=== PATIENT | female | born 1965 | race Hispanic/Latino ===

== ENCOUNTER 2017-06-08 08:12 | Day surgery (SDC) | payer OTHER, BC ==
[2017-06-04 14:17] VITALS: BMI 34.7
[2017-06-08] MEDS ORDERED: Lidocaine 2% w Epi 1:100,000 Inj IJ ONE ×2 (10:05→11:54)
[2017-06-08] MEDS ORDERED: Propofol 10 mg/ml Inj (20 ML) ONE (11:08)
[2017-06-08] MEDS ORDERED: Midazolam 2 MG/2 ML VIAL ONE (11:08)
[2017-06-08] MEDS ORDERED: Lidocaine 4% (Laryng-O-Jet) Kit MM ONE (11:08)
[2017-06-08] MEDS ORDERED: Lactated Ringer's 1,000 ML IV ONE ×2 (11:15→16:05)
[2017-06-08] MEDS ORDERED: Rocuronium 10 mg/ml (5 ml) ONE (11:25)
[2017-06-08] MEDS ORDERED: ePHEDrine 50 mg/ml Inj ONE (11:34)
[2017-06-08] MEDS ORDERED: Dexamethasone 4 mg/1 ml ONE (12:18)
[2017-06-08] MEDS ORDERED: Bupivacaine HCl 0.5% PF (10 ml) Inj ONE (13:15)
[2017-06-08] MEDS ORDERED: Sodium Chloride 0.9% 500 ML IV ONE (13:30)
[2017-06-08] MEDS ORDERED: Liquid Adhesive TOP ONE (13:34)
--- NOTE | 2017-06-08 14:00 | PCM.SURG1 ---
Surgeon's Initial Post Op Note - Surgeon's Notes Surgeon: Yusra Mata MD Inspector Repairer [place]: Espinoza Alejandre PA-C; Tonya Silveira MD Type of Anesthesia: General Endo, Other (post op interscalene block ) Pre-Operative Diagnosis: Right shoulder partial RTC tear Operative Findings: see op report Post-Operative Diagnosis: same as pre-op dx Operation Performed: Right shoulder artrhoscopy, double row rotator cuff repair , subacromial decompression with acromioplasty and distal clavulectomy, mini open subpec biceps tenodesis Specimen/Specimens Removed: none Estimated Blood Loss: EBL {In ML}: 10 Date of Surgery/Procedure: 06/08/17 Time of Surgery/Procedure: 12:00
[2017-06-08] MEDS ORDERED: Oxycodone/Acetaminophen 5/325 mg Tab PO PRN (14:01)
--- NOTE | 2017-06-08 14:22 | PCM.ANESB1 ---
Interscalene Block - Brachial Plexus Date of Procedure: 06/08/17 Anesthesiologist: Bryn Pre-Procedure Diagnosis: Right shoulder rotator cuff tear Post-Procedure Diagnosis: Same Procedure Performed: Interscalene Block of Brachial Plexus Right - Procedure Interscalene Block of Brachial Plexus: This procedure was explained to the patient that it is for post-operative pain management. Consent was obtained after a thorough discussion with the patient regarding the benefits and possible complications of local anesthetic block of the Brachial Plexus at the Interscalene area. The patient was brought to the Operating Room and standard monitors were applied. Time out was held with the circulating nurse to confirm the correct surgery and appropriate block. After the completion of surgery and patient was extubated, the patient's head was gently rotated away from the ___right___operative shoulder and the anterior scalene groove was carefully palpated. The ultrasound transducer was then applied to the skin in the transverse plane and the brachial plexus was visualized lateral to the carotid artery and in between the anterior and middle scalene muscles. After identification,the anterior lateral portion of the neck was prepped with Betadine solution three times and Lidocaine 1% was injected subcutaneously for topical analgesia. At this point, a # 22 gauge Stimuplex 2 inches insulated needle was inserted into the interscalene groove and directed in a caudal and midline direction. The needle was inserted lateral to the ultrasound transducer in-plane towards the brachial plexus in a [id number] direction. Needle advancement was performed carefully under direct ultrasound visualization. Nerve stimulator was used and twitched of the affected extremity including the hand brachialis muscles, biceps and the deltoid was obtained at a current of __0.4___MA. After repeated negative aspiration,__30___cc of__.5%___,___bupivacaine were injected. Under ultrasound guidance the local anesthetics were observed surrounding the roots of the brachial plexus. The needle was removed intact and sterile dressing was applied. The patient had stable vital signs, was conscious and in no apparent distress. The patient tolerated the interscalene block of the bracheal plexus well with stable vital signs and was transferred to PACU.
[2017-06-08] MEDS ORDERED: HYDROmorphone 0.5 mg/0.5 ml ISec IVP PRN (14:23)
[2017-06-08 18:11] VITALS: BP 128/80; PULSE 66; RESP 18; TEMP 97; O2SAT 98
--- NOTE | 2017-06-08 20:20 | OP ---
PROCEDURE DATE: 06/08/2017 ATTENDING SURGEON: Yusra Mata MD. JANITOR CLEANER: Espinoza Alejandre PA-C. PREOPERATIVE DIAGNOSES: 1. Right shoulder partial rotator cuff tear. 2. Synovitis. 3. Impingement. POSTOPERATIVE DIAGNOSES: 1. Right shoulder extensive synovitis. 2. Biceps tendon tear. 3. Capsular adhesions. 4. Full-thickness supraspinatus tear. 5. Impingement. 6. Acromioclavicular joint arthritis. 7. Subacromial bursitis. PROCEDURES: 1. Right shoulder double row rotator cuff repair. 2. Subacromial decompression with acromioplasty. 3. Distal clavicle excision. 4. Anterior capsular lysis of adhesions. 5. Complete synovectomy. 6. Mini-open subpectoral biceps tenodesis. TYPE OF ANESTHESIA: General and interscalene block. ESTIMATED BLOOD LOSS: 10 mL. SPECIMENS: None. CLOSURE: Primary. FLUIDS: See anesthesia sheet. ANTIBIOTICS: See anesthesia sheet. COMPLICATIONS: None. INDICATIONS: After failing a course of nonoperative therapy, the patient elected to undergo the above procedures. In the office the risks and possible complications of the shoulder arthroscopy were discussed in detail with the patient. These risks include, but are not limited to, continued pain, lack of motion, infection, vascular injury, and nerve injury including axillary nerve dysfunction, reflex sympathetic dystrophy, compartment syndrome, limb loss, and . The patient expressed an understanding of the risks and possible benefits of the procedure, and was also made aware of the alternatives to surgery. An informed consent was obtained, and was checked immediately preop. The patient's shoulder injuries requiring surgery are the result of an accident/incident that occurred at work. DESCRIPTION OF PROCEDURE: The patient was correctly identified in the holding area and the right shoulder was marked with the surgeon's initials. The patient was transported to the operating room and placed in the supine position and general anesthesia was obtained and regional interscalene block was used. A preoperative orthopedic examination revealed a passive range of motion of 270 degrees of forward flexion, 50 degrees of external rotation, and 140 degrees of abduction. Stability examination revealed no instability was noted. The patient was then placed in a beach chair position utilizing the beach chair positioning device. The patient's head was stabilized and the indicated upper extremity was prepped and draped in the standard surgical fashion. The anatomic structures were outlined with a skin marker, and 1% lidocaine with epinephrine was injected into the posterior, anterior, and lateral portal areas. A #21-gauge spinal needle was placed in the glenohumeral joint from the posterior portal and 10 mL of sterile saline was injected into the glenohumeral joint. Return of fluid indicated correct needle placement into the joint. The needle was then withdrawn and a #11 blade was used to make a 1-cm incision at the posterior portal site. Next, the arthroscopic blunt trocar was inserted into the glenohumeral joint. A #21-gauge spinal needle was placed through the anterior rotator interval, and the anterior portal was made with a #11 blade after the spinal needle was withdrawn. A 7-mm cannula was then inserted after the skin incision was made and the arthroscopic probe was then used to examine the internal structures of the glenohumeral joint. With the shoulder in abducted and externally rotated position, the articular surface of the rotator cuff was visualized. The arthroscope and probe were then switched from posterior to anterior. The posterior labrum, posterior capsule, and biceps anchor reflection was then inspected with the arthroscope in the anterior portal position. Examination of the glenohumeral joint revealed: 1. Extensive synovitis. 2. Biceps tendon tear. 3. Near full-thickness supraspinatus tear. 4. Anterior capsular adhesions. The radiofrequency device was introduced through the anterior portal and a radiofrequency anterior capsular rotator interval lysis of adhesions was performed. The anterior capsule was released to optimize range of motion. The radiofrequency device was used to provide hemostasis during this procedure. After the lysis of adhesions, passive range of motion measured 180 degrees of forward flexion, 70 degrees of external rotation, and 160 degrees of abduction. The biceps pathology was addressed with biceps tenodesis. Upon careful arthroscopic evaluation of biceps tendon and its anchor site at the labrum, it was noted to be highly frayed and tears not amenable to repair. Biceps tenotomy was performed using the arthroscopic scissors. Afterwards, a small 2-cm incision was marked within the axillary fold and injected with 2 mL of 1% lidocaine with epinephrine. Skin incision was made using a 15 blade. Deeper dissection was carried out with scissors, and interval between pectoralis major tendon and coracobrachialis. Biceps tendon was identified sitting within the biceps groove. It was removed from the groove and found to be erythematous with intersubstance fraying and tearing. Torn edges of the tendon were incised using 15 blade and a 2.0 FiberLoop was used to whip stitch the tendon. The elbow was taken through flexion and extension to identify the appropriate site of tenodesis within the bicipital groove with proper tensioning of muscle belly. For tenodesis, we used the Arthrex bicortical button. The free ends of FiberLoop were loaded onto the metal cortical button. The diameter of the tendon was measured using the guide. Using appropriate drill bit, bicortical drill hole was made at the top of bicipital groove. Then, using the appropriate size reamer, as determined after measuring the width of biceps tendon, the near cortex was drilled approximately 1.5 cm in depth. The cortical button was loaded on the handle and passed through the drilled hole, then flipped at the far cortex. The biceps tendon was delivered into the drill hole and was sutured and secured with FiberLoop. Normal saline irrigation was used to remove all the debris and loose bodies. Skin edges were brought closer using 2.0 Vicryl sutures and closed 4.0 nylon sutures. Excessive glenohumeral synovitis was cleared with a 4.0 mm full radius shaver. The hypertrophic, erythematous synovium was resected. Hemostasis was maintained with the radiofrequency device. Examination of the subacromial space revealed: 1. Full-thickness supraspinatus tear. 2. AC joint arthritis. 3. Bursitis. 4. Impingement. Visualization of the subacromial space was difficult due to excessive bursitis. A bursectomy was performed using a combination of radiofrequency device as well as a 4.0-mm full radius motorized shaver. The soft tissue on the undersurface of the acromion was debrided utilizing the 4.0-mm full radius shaver and the radiofrequency device was used for hemostasis. At this point, the coracoacromial ligament was released with the radiofrequency device and the acromial branch of the thoracoacromial artery was coagulated with the same instrument. Subacromial decompression was performed with a 4.0-mm conical renu using both the medial portal and the "cutting-block" precision acromioplasty technique from the posterior portal. The undersurface of the acromion was resected to a flat, smooth surface to allow unrestricted excursion of the rotator cuff. After adequate subacromial decompression, attention was then turned to the acromioclavicular joint which was localized using a 21-gauge spinal needle. A single 1-cm incision was placed on the superior aspect of the acromioclavicular joint, and the arthroscope and radiofrequency device were then inserted. Utilizing the radiofrequency device for hemostasis as well as tissue ablation, the perimeter of the distal clavicle was denuded of soft tissue. Care was taken to preserve the superoposterior soft tissue ligamentous attachments to the distal clavicle. A 4.0-mm conical renu was introduced through the superior portal and 7 mm of distal clavicle was excised. A 1 mm of medial acromion was also resected. All resected bone was planed to a smooth, flat surface, and was checked by arthroscopic visualization from the superior AC joint portal. After adequate subacromial decompression, attention was then turned to the rotator cuff tear, which was easily visualized after adequate bursectomy had been performed. An auxiliary lateral portal was placed 2 cm posterior to the original lateral portal, after a correct "-man's angle" was determined using a transdeltoid 21 gauge spinal needle. Arthroscopic soft tissue releases were performed using an elevator at the coracohumeral ligament insertion and superior glenoid to free up the rotator cuff to provide adequate excursion to support a repair to the greater tuberosity. Next, the greater tuberosity was gently debrided with a combination of the 4.0 mm straight shaver and radiofrequency device, and the bone was denuded to a bleeding surface using the 4.0-mm renu. The lateral margin of the rotator cuff tear was debrided to a smooth and stable tendon surface using the 4.0-mm shaver. Two 4.5-mm Arthrex corkscrew suture anchors were placed with the proper "-man's angle" into the greater tuberosity, and a mattress suture from each anchor was passed through supraspinatus 10 mm medial to the torn edge. These anchors formed the medial row of the double row repair. The arm was abducted to 70 degrees, and the leading edge of the cuff was drawn to its proper insertion on the greater tuberosity. The #2 FiberWire mattress sutures were tied with standard arthroscopic knot tying techniques - Alex knots and half hitches using a knot pusher. The remaining sutures were secured to the tuberosity with two 4.5-mm PushLock absorbable anchors, which were placed with standard technique into the lateral aspect of the greater tuberosity approximately 1 cm lateral to the medial row anchors. One suture strand from each knot was crossed to the diagonal PushLock anchor along with the suture strand from the corresponding anchor directly medial. This linking of the medial and lateral row formed a "suture bridge" rotator cuff repair. The ends of the remaining sutures were then cut. The shoulder was put through a passive ROM, and the rotator cuff repair was noted to be stable through a ROM of 130/50. No prominence of the suture knots or of rotator cuff tissue was noted to impinge during abduction and internal rotation. The subacromial space was then irrigated with sterile saline, and closure was instituted with sutures. A dressing was placed consisting of Xeroform, 4 x 4's, ABD pads, and tape. The patient was placed in a sling with an ABD pad in the axilla. The patient was then placed in a supine position and extubated without incident. The patient was transferred to the recovery room in stable condition, having tolerated the procedure well. Postoperatively, the patient will be maintained in an abduction sling, also provided with my rehab protocol, defining the restriction and sling use for 6 weeks. Follow up in days. During this procedure, I was assisted by Espinoza Alejandre PA-C, who assisted in positioning the patient on the operating room table as well as transferring the patient from the operating room table to the recovery room stretcher. In addition, Espinoza Alejandre PA-C, assisted me during the actual operative procedure by positioning the patient's extremity to allow for easier arthroscopic access to all areas of the joint. The presence of Espinoza Alejandre PA-C, as my operative physician assistant psychiatry, was medically necessary to ensure the utmost safety of the patient in the pre, intra-, and postoperative periods. Yusra Mata MD
== END 2017-06-08 18:10 | disposition home or self-care (01) ==
LOC: H.OPSURG 08:12
PROVIDERS: ATTEND Orthopaedic Surgery
DX: M75.41 Impingement syndrome of right shoulder (principal); M65.811 Other synovitis and tenosynovitis, right shoulder; M75.01 Adhesive capsulitis of right shoulder; M13.811 Other specified arthritis, right shoulder; M75.111 Incomplete rotator cuff tear or rupture of right shoulder, not specified as traumatic
CPT/HCPCS: 23130; 23430; 29823; 29824; 29826; 29827; J0690; J1100; J2001; J2250; J2405; J2704; J3010; J7040; J7120

== ENCOUNTER 2017-11-23 07:52 | Day surgery (SDC) | payer OTHER, BC ==
[2017-06-04 14:17] VITALS: BMI 34.7
[2017-11-23] MEDS ORDERED: EPINEPHrine 1 mg/ml (1:1000) Inj ONE (08:05)
[2017-11-23] MEDS ORDERED: Bacitracin Ointment 30 GM TUBE ONE (08:05)
[2017-11-23] MEDS ORDERED: Succinylcholine 200 mg/10 ml Inj IV ONE (08:10)
[2017-11-23] MEDS ORDERED: Phenylephrine 10 mg/ml Inj ONE (08:10)
[2017-11-23] MEDS ORDERED: Propofol 10 mg/ml Inj (20 ML) ONE (08:10)
[2017-11-23] MEDS ORDERED: Midazolam 2 MG/2 ML VIAL ONE (08:10)
[2017-11-23] MEDS ORDERED: Rocuronium 10 mg/ml (5 ml) ONE (08:10)
[2017-11-23] MEDS ORDERED: ePHEDrine 50 mg/ml Inj ONE (08:10)
[2017-11-23] MEDS ORDERED: Esmolol 100 mg/10ml Inj IV ONE (08:20)
[2017-11-23] MEDS ORDERED: Ropivacaine 0.5% 30ML IV ONE (08:21)
[2017-11-23] MEDS ORDERED: Neostigmine 1:1000 (1 mg/ml) Inj ONE (08:21)
[2017-11-23 08:27] VITALS: RESP 18
[2017-11-23] MEDS ORDERED: Lactated Ringer's 1,000 ML IV ONE ×2 (10:15→10:50)
[2017-11-23] MEDS ORDERED: Lidocaine 2% w Epi 1:200,000 Pf Inj IJ ONE (10:15)
[2017-11-23] MEDS ORDERED: methylPREDNISolone Depo 80 mg/ml Inj ONE (10:57)
[2017-11-23] MEDS ORDERED: Bupivacaine 0.25% Inj(30mL) IJ ONE (10:59)
--- NOTE | 2017-11-23 11:19 | PCM.SURG1 ---
Surgeon's Initial Post Op Note - Surgeon's Notes Surgeon: Yusra Mata MD Business Analytics Manager: Espinoza Alejandre PA-C Type of Anesthesia: General Endo Pre-Operative Diagnosis: Right shoulder stiffnes/adhesions s/p RTC repair Operative Findings: see op report Post-Operative Diagnosis: same as pre-op dx Operation Performed: Right shoulder revision arthroscopy, extensive debridement , lysis of adhesions, subacromial decompression Specimen/Specimens Removed: none Estimated Blood Loss: EBL {In ML}: 4 Date of Surgery/Procedure: 11/23/17 Time of Surgery/Procedure: 09:30
[2017-11-23] MEDS ORDERED: Oxycodone/Acetaminophen 5/325 mg Tab PO PRN (11:20)
--- NOTE | 2017-11-23 12:14 | PCM.ANESB1 ---
Interscalene Block - Brachial Plexus Date of Procedure: 11/23/17 Procedure Performed: Interscalene Block of Brachial Plexus Right - Procedure Interscalene Block of Brachial Plexus: This procedure was explained to the patient that it is for post-operative pain management. Consent was obtained after a thorough discussion with the patient regarding the benefits and possible complications of local anesthetic block of the Brachial Plexus at the Interscalene area. The patient was brought to the Operating Room and standard monitors were applied. Time out was held with the circulating nurse to confirm the correct surgery and appropriate block. After applying Oxygen by nasal cannula and administering IV Sedation, the patient's head was gently rotated away from the ___right___operative shoulder and the anterior scalene groove was carefully palpated. The ultrasound transducer was then applied to the skin in the transverse plane and the brachial plexus was visualized lateral to the carotid artery and in between the anterior and middle scalene muscles. After identification,the anterior lateral portion of the neck was prepped with chloroprep solution. At this point, a # 22 gauge Stimuplex 2 inches insulated needle was inserted into the interscalene groove and directed in a caudal and midline direction. The needle was inserted lateral to the ultrasound transducer in-plane towards the brachial plexus in a [id number] direction. Needle advancement was performed carefully under direct ultrasound visualization. Nerve stimulator was used and twitched of the affected extremity including the hand brachialis muscles, biceps and the deltoid was obtained at a current of ___0.4__MA. After repeated negative aspiration,__20___cc of___0.5% ropivacaine__, were injected and this was followed with __5___cc of ___0.25__% ropivavacine . Under ultrasound guidance the local anesthetics were observed surrounding the roots of the brachial plexus. The needle was removed intact and sterile dressing was applied. The patient had stable vital signs, was conscious and in no apparent distress. The patient tolerated the interscalene block of the bracheal plexus well with stable vital signs and was prepared for subsequent surgery.
[2017-11-23] MEDS: HYDROmorphone 0.5 mg/0.5 ml ISec IVP PRN ×3 (12:38→13:30)
[2017-11-23 17:50] VITALS: BP 135/78; PULSE 78; TEMP 98; O2SAT 98
--- NOTE | 2017-11-24 00:30 | OP ---
PROCEDURE DATE: 11/23/2017 ATTENDING PHYSICIAN: Yusra Mata MD CARDIOLOGY TECH: PREOPERATIVE DIAGNOSES: 1. Right shoulder post-operative adhesion. 2. Synovitis. 3. Impingement. POSTOPERATIVE DIAGNOSES: 1. Right shoulder capsular adhesions. 2. Extensive synovitis. 3. Grade IV osteochondral injury to humeral head. 4. Cartilaginous loose body. 5. Impingement. 6. Bursitis. 7. Subacromial adhesions. PROCEDURES: 1. Right shoulder arthroscopy, extensive debridement. 2. Complete synovectomy. 3. Capsular lysis of adhesions with manipulation. 4. Subacromial decompression with acromioplasty. 5. Removal of loose body. 6. Chondroplasty of humeral head. 7. 22 modifier with previous surgery. ANESTHESIA TYPE: General, interscalene block. ESTIMATED BLOOD LOSS: 10 mL. SPECIMEN: None. COMPLICATIONS: None. INDICATIONS: After failing a course of nonoperative therapy, the patient elected to undergo the above procedures. In the office the risks and possible complications of the shoulder arthroscopy were discussed in detail with the patient. These risks include, but are not limited to, continued pain, lack of motion, infection, vascular injury, and nerve injury including axillary nerve dysfunction, reflex sympathetic dystrophy, compartment syndrome, limb loss, and . The patient expressed an understanding of the risks and possible benefits of the procedure, and was also made aware of the alternatives to surgery. An informed consent was obtained, and was checked immediately preop. Procedure 1: The patient was correctly identified in the holding area and the right shoulder was marked with the surgeon's initials. The patient was transported to the operating room and placed in the supine position and general anesthesia and regional interscalene block was used. Exam under anesthesia: A preoperative orthopedic examination revealed a passive range of motion of forward flexion to 90, external rotation of 20, and abduction of 70. Stability examination revealed no instability. Examination of the glenohumeral joint revealed: 1. Extensive synovitis. 2. Grade IV osteochondral defect of the humeral head. 3. Capsular adhesions. 4. Synovitis. 5. Anterior labral tear. 6. Partial rotator cuff tear. Using the probe, the labrum was circumferentially assessed for tear. Tears were noted at posterior, superior, anterior labrum. Using the 4.0 motorized shaver and radiofrequency probe, the torn edges of the labrum were debrided until stable rim, preventing any further propagation. The full radius shaver was used to mechanically debride loose chondral edges of the humeral head, to a stable border. Extreme care was taken to not disrupt the adjacent chondral surface. The edge of the debrided area was probed to ensure chondral stability. At this point, multiple small chondral loose bodies were noted in the axillary pouch subscapularis recess areas. Using the aforementioned arthroscopic portals, loose bodies were removed with arthroscopic techniques including graspers and the shaver. At this point, with the arthroscope withdrawn from the joint, a gentle passive manipulation under anesthesia was performed. The shoulder was manipulated through forward elevation, abduction, and internal/external rotation. The radiofrequency device was then introduced through the anterior portal and then switched to the posterior portal to perform a radiofrequency anne-capsular lysis of adhesions. The anterior, inferior, and posterior capsules were released with the hook Saber ArthroWand to optimize range of motion. The radiofrequency device was used to provide hemostasis during this procedure. After the manipulation and lysis of adhesions, passive range of motion improved to forward elevation to 160, external rotation of 60, and 150 degrees of abduction. Excessive glenohumeral synovitis was cleared with a 4.0 mm full radius shaver. The hypertrophic, erythematous synovium was resected. Hemostasis was maintained with the radiofrequency device . Examination of subacromial space revealed: 1. Impingement. 2. Bursitis. 3. Multiple capsular adhesions. Visualization of the subacromial space was difficult due to excessive bursitis. A bursectomy was performed using a combination of radiofrequency device as well as a 4.0-mm full radius motorized shaver. The soft tissue on the undersurface of the acromion was debrided utilizing the 4.0-mm full radius shaver and the radiofrequency device was used for hemostasis. At this point, the coracoacromial ligament was released with the radiofrequency device and the acromial branch of the thoracoacromial artery was coagulated with the same instrument. Subacromial decompression was performed with a 4.0-mm conical renu using both the medial portal and the "cutting-block" precision acromioplasty technique from the posterior portal. The undersurface of the acromion was resected to a flat, smooth surface to allow unrestricted excursion of the rotator cuff. There were multiples adhesions noted within the subacromial space. Adhesions were found within the anterior, posterior, and lateral gutters. These adhesions were scarred into anterior and posterior portion of rotator cuff limiting range of motion. Using the 4.0-mm motorized shaver and radiofrequency probe, adhesions were debrided and removed. All the bleeding surfaces were coagulated. Afterwards, the shoulder was taken through range of motion and there was a notable improvement in range of motion and unrestrictive excursion of rotator cuff muscle and tendons. The subacromial space was then irrigated with sterile saline, and closure was instituted with sutures. A dressing was placed consisting of Xeroform, 4x4's, ABD pads, and tape. The patient was placed in a sling with an ABD pad in the axilla. The patient was then placed in a supine position and extubated without incident. The patient was transferred to the recovery room in stable condition, having tolerated the procedure well. The patient is given appropriate postop rehab protocol. Postoperatively, the patient will be started on Phase I shoulder rehab as well as Codman's exercises and will advance rapidly to regain full range of motion and optimize shoulder function. Followup will be in days in the office. Postoperatively, a continuous passive motion machine will be delivered to the patient's home and the patient will be instructed in its use. The CPM machine is necessary to optimize the patient's postoperative range of motion and provide the best possible outcome from the procedure . Due to the patient's previous procedure(s) performed in this area, this procedure was more difficult than a standard shoulder arthroscopy. This required extra time during prepping and draping, as well as an extended operative time. Because of the added complexity of the revision nature of this procedure, the length of the case was prolonged by %. Previous surgery was right shoulder double roll rotator cuff repair. Yusra Mata MD
== END 2017-11-23 17:50 | disposition home or self-care (01) ==
LOC: H.OPSURG 07:52
PROVIDERS: ATTEND Orthopaedic Surgery
DX: M75.41 Impingement syndrome of right shoulder (principal); K21.9 Gastro-esophageal reflux disease without esophagitis; E66.9 Obesity, unspecified; M75.01 Adhesive capsulitis of right shoulder; M65.811 Other synovitis and tenosynovitis, right shoulder; M24.011 Loose body in right shoulder
CPT/HCPCS: 29819; 29821; 29823; 29825; J0171; J0330; J0690; J1040; J1170; J2001; J2250; J2370; J2405; J2704; J2710; J3010; J7030; J7120